=== PATIENT | male | born 1980 | race Caucasian/White ===

== ENCOUNTER 2016-12-29 09:26 | Emergency (ER) | payer SELFPAY ==
--- NOTE | 2016-12-29 10:25 | DIAGNOSTIC IMAGING REPORT ---
PROCEDURE: XR CHEST 1 VIEW INDICATION: CHEST PAIN TECHNIQUE: Portable AP view 09:48 a.m. COMPARISON: Chest 01/25/2015 FINDINGS: Lungs are clear. Heart and mediastinum are normal. Thorax is normal. IMPRESSION: 1. Negative chest.
--- NOTE | 2016-12-29 11:21 | ED NURSING NOTES ---
Clinical Report - Nurses [facility] [address] [place] [address] 12/29/2016 9:27 Patient: STEWART HARRIS TRIAGE Triage time 09:Dec 29 2016. Acuity: LEVEL 3. Chief Complaint: CHEST PAIN. 09:28 12/29/16. 09:12/29/16. Alert. SEPSIS SCREEN: Sepsis Screen. Negative (no infection suspected/documented). --09:32 Brock Juarez R.N. 09:27 12/29/16. BP: 155/103. HR: 74. RR: 16. O2 saturation: 99% on room air. Temp: 97.9 F (oral). Pain level now: 11/22. --09:32 Brock Juarez R.N. Weight: 124.7 kg stated. Height/Length: 70 inches Per Patient. BMI: 39.4. --09:27 Brock Juarez R.N. Medications HCTZ unsure of dose, daily. Lisinopril Oral 2.5 mg, daily. --09:33 Brock Juarez R.N. Atenolol Oral, , unsure of dose. --09:33 Brock Juarez R.N. Medication/allergy information source: the patient. --09:32 Brock Juarez R.N. Allergies No Known Drug Allergy. --09:33 Brock Juarez R.N. History Arrived by private vehicle. Historian: patient. Unaccompanied. Primary physician (ARNEL). 09:28 12/29/16. This started just prior to arrival. ( 1 hr ago, started at work, left chest with no radiation). The patient has had difficulty breathing and nausea. Reports experiencing sweating episodes. 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 PAST MEDICAL HX: Immunizations: up-to-date. SOCIAL HX: Former smoker (3 weeks ago). No alcohol use or drug use. No infectious disease exposure. ABUSE ASSESSMENT: No report of abuse. FALL RISK ASSESSMENT: Fall risk assessment completed. No fall risk identified. NUTRITIONAL RISK ASSESSMENT: The nutritional risk assessment revealed no deficiencies. FUNCTIONAL ASSESSMENT: Functional assessment: no impairments noted. LEARNING NEEDS ASSESSMENT: The learning needs assessment revealed no barriers. SKIN INTEGRITY ASSESSMENT: Skin integrity risk assessment completed. No skin integrity risk identified. --09:32 Brock Juarez R.N. PROBLEMS: Chest Wall Pain. Sprain. Chronic Headache. Gastroesophageal Reflux. Hypertension. --09:33 Brock Juarez R.N. ADDITIONAL SURGERIES: Ankle. --09:34 Brock Juarez R.N. Assessment 09:12/29/16. --09:32 Brock Juarez R.N. Interventions 09:12/29/16. 09:12/29/16. ID and allergy band on patient. To treatment room. --09:32 Brock Juarez R.N. PHYSICAL ASSESSMENT 09:12/29/16. Ambulatory to room. GENERAL / NEURO / PSYCH: Alert. Oriented X 4. Appears in pain. RESPIRATORY: Respirations not labored. CVS: Normal sinus rhythm noted. Capillary refill less than 2 seconds. EXTREMITIES: No lower extremity edema. SKIN: Skin is warm and dry. --09:34 Brock Juarez R.N. NURSING PROGRESS NOTES 09:12/29/2016 Site #1 started via IV in the right antecubital space with an 20g angiocath; one attempt. Blood drawn: rainbow set. Labeled in the presence of the patient. Saline lock flushed with 10 mL saline. --09:31 Brock Juarez R.N. 09:12/29/2016 Aspirin PO 325 mg given. Allergies verified and confirmed 5 rights. --09:32 Brock Juarez R.N. 09:12/29/16. The plan of care for this patient has been created. Oxygen administered. erecting engineer, pulse oximeter and NIBP monitor placed on patient; monitor alarms on. Patient gowned. Head of bed elevated. Reassurance given. Two patient identifiers checked. Call light placed in reach. Side rails up x 2. Bed placed in lowest position. Brakes of bed on. --09:30 Brock Juarez R.N. 09:30 12/29/16. Patient ready for evaluation- chart flagged and notification provided. --09:30 Brock Juarez R.N. 09:12/29/16. EKG time: (930). EKG was ordered, performed by a nurse and shown to the ED physician. --09:30 Brock Juarez R.N. 09:30 12/29/16. Patient ready for evaluation- chart flagged and notification provided. --09:30 Brock Juarez R.N. 09:30 12/29/16. Cardiac rhythm: normal sinus rhythm. --09:30 Brock Juarez R.N. 09:34 12/29/16. erecting engineer, pulse oximeter and NIBP monitor placed on patient; monitor alarms on. --09:34 Brock Juarez R.N. 10:12/29/16. Cardiac rhythm: normal sinus rhythm. --10:01 Brock Juarez R.N. 10:12/29/16. BP: 141/86. HR: 67. RR: 14. O2 saturation: 99% on nasal cannula at 2 liters/minute. --10:01 Brock Juarez R.N. 10:12/29/2016 Toradol IVP 30 mg given over 2 minute(s) via site #1. Allergies verified and confirmed 5 rights. IV patency established. IV site checked: no pain, redness, or swelling. IV flushed thoroughly pre- and post-medication administration. IVP given by RN. --10:05 Brock Juarez R.N. 10:12/29/16. Patient and family informed about reason for wait and about plan of care. --10:21 Brock Juarez R.N. 10:12/29/16. Cardiac rhythm: normal sinus rhythm. Reassessment after medication administered. Overall patient status is improved- he states feels better. ( 3/10 pain). --10:21 Brock Juarez R.N. 11:12/29/16. --11:06 Brock Juarez R.N. 11:12/29/16. BP: 116/76. HR: 68. RR: 16. O2 saturation: 99% on nasal cannula at 2 liters/minute. --11:06 Brock Juarez R.N. 11:06 12/29/16. Cardiac rhythm: normal sinus rhythm. --11:06 Brock Juarez R.N. 11:12/29/16. Patient and family informed about reason for wait and about plan of care. --11:07 Brock Juarez R.N. DISPOSITION / DISCHARGE 11:24 12/29/2016 Site #1 removed upon discharge. Catheter intact. Bandage applied. --11:24 Brock Juarez R.N. 11:25 12/29/16. Condition at departure: improved. The goals identified in the patient's plan of care were met. No learning barriers present. Discharge instructions provided and reviewed with the patient. Reviewed warnings. Reviewed medication(s). Treatments reviewed. Patient verbalized understanding. Written instructions provided in Swazi. The patient was discharged by the physician. He was discharged home and accompanied by family. He left the Emergency Department ambulatory and via private vehicle. Family member driving. FALL RISK ASSESSMENT: Fall risk assessment completed. No fall risk identified. --11:25 Brock Juarez R.N. 11:24 12/29/16. BP: 116/83. HR: 72. RR: 16. O2 saturation: 99% on room air. Temp: 97.9 F (oral). --11:25 Brock Juarez R.N. 11:34 12/29/16. Departure time: 11:33 Dec 29 2016. --11:34 Brock Juarez R.N. Locked/Released at 12/29/2016 11:44 by Brock Juarez R.N.
--- NOTE | 2016-12-29 11:21 | ED CLINICAL REPORT ---
Clinical Report - Physicians/Mid Levels [facility] [address] [place] [address] 12/29/2016 9:27 Patient: STEWART HARRIS Time Seen: 09:48 Dec 29 2016. Arrived- By private vehicle. Historian- patient. CPT: ER phys charges level 4 plus (#[id number]). EKG interpretation (#[id number]). HISTORY OF PRESENT ILLNESS Chief Complaint: CHEST PAIN. This started just prior to arrival This started just prior to arrival. ( 1 hr ago, started at work, left chest with no radiation). The patient has had difficulty breathing and nausea. Reports experiencing sweating episodes. and is still present. Onset during light activity. It is described as "pain" and diffuse and it is described as located in the left chest area. At its maximum, severity described as moderate. When seen in the E.D., severity described as mild. Modifying factors. Not worsened by anything. Not relieved by anything. No nausea or vomiting. He has had difficulty breathing and has experienced diaphoresis. 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 Recent medical care: Not recently seen/assessed. REVIEW OF SYSTEMS No fever, chills, cough, pedal edema or calf pain. No fainting episodes, sore throat, abdominal pain, black stools or difficulty with urination. No skin rash. All systems otherwise negative, except as recorded above. PAST HISTORY Chest Wall Pain. Sprain. Chronic Headache. Gastroesophageal Reflux. Hypertension. ADDITIONAL SURGERIES: Ankle. Medications: Atenolol Oral, , unsure of dose. HCTZ unsure of dose, daily. Lisinopril Oral 2.5 mg, daily. Allergies: No Known Drug Allergy. SOCIAL HISTORY Former smoker. No alcohol use or drug use. ADDITIONAL NOTES The nursing notes have been reviewed. PHYSICAL EXAM Vital Signs: 12/29/2016 09:27 BP: 155/103. HR: 74. RR: 16. O2 saturation: 99%. Temp: 97.9 F. Pain level now: 6/10. Appearance: Alert. Anxious. Appears to be in pain. Patient in mild distress. Eyes: Eyes normal inspection. ENT: Pharynx normal. Neck: Normal inspection. Neck supple. CVS: Normal heart rate and rhythm. Heart sounds normal. Pulses normal. No cardiac murmur. Respiratory: No respiratory distress. Chest pain reproducible with palpation of the costal cartilage and anterior chest wall, with movement of the trunk and left arm and with deep breathing. Breath sounds normal. Abdomen: Soft and nontender. Bowel sounds normal. Back: Normal external inspection. No CVA tenderness. Skin: Skin warm. Normal skin color. No rash. Extremities: Extremities exhibit normal ROM. No calf tenderness. No lower extremity edema. Neuro: Oriented X 3. No motor deficit. No sensory deficit. Reflexes normal. LABS, X-RAYS, AND EKG EKG: No acute ischemia. Normal sinus rhythm. Normal P waves. Normal KATHRINE. Normal QRS complex. Normal axis. Normal ST and T waves. Prior EKG unavailable. The study has been interpreted contemporaneously. The study has been independently viewed by me. The EKG appears to be a good tracing. Chest X-ray: Normal Chest X-Ray. Laboratory Tests: CBC w Diff: (SHERIDAN: 12/29/2016 09:30) ( MsgRcvd 12/29/2016 09:41) Final results Test Result Flag Units (Reference) WHITE BLOOD COUNT 9.1 K/uL (4.5-11.5) RED BLOOD COUNT 5.97 H M/uL (4.50-5.90) HEMOGLOBIN 16.6 gm/dL (13.5-17.5) HEMATOCRIT 48.8 % (41.0-53.0) MEAN CELL VOLUME 82 fL (80-100) MEAN CORPUSCULAR HGB 28 pg (26-34) MEAN CORPUSCULAR HGB CONC 34 g/dL (31-37) RED CELL DISTRIBUTION WIDTH 13.6 % (11.6-14.8) PLATELET COUNT 273 K/uL (150-400) NEUTROPHIL % 59.2 % (50-75) LYMPH % 32.3 % (25-40) MONO % 6.1 % (3-14) EOSINOPHIL % 2.1 % (0-4) BASOPHIL % 0.3 % (0-2) [id number]: (SHERIDAN: 12/29/2016 09:30) ( MsgRcvd 12/29/2016 10:14) Final results Test Result Flag Units (Reference) D-DIMER QUANTITATIVE 0.44 ug/mLFEU (0.27-0.52) The primary value of this quantitative assay relates toits negative predictive value (i.e. exclusion) of pulmonaryembolism/deep vein thrombosis/DIC.Elevated levels of d-dimer may also occur with:, age, cancer, inflammation, liver disease,post-op, infection, hematoma, coronary disease, peripheralarteriopathy, bleeding disorders and thrombolytic treatment.Results should be correlated with other clinical andradiological data.Testing Methodology: Latex Immunoassay [id number]: (SHERIDAN: 12/29/2016 09:30) ( CtgRcvd 12/29/2016 10:14) Final results Test Result Flag Units (Reference) C-REACTIVE PROTEIN 1.4 H mg/dL (0.0-0.9) CHEM 13 PANEL: (SHERIDAN: 12/29/2016 09:30) ( [facility] 12/29/2016 10:05) Final results Test Result Flag Units (Reference) GLUCOSE 102 mg/dL (70-110) BUN 13 mg/dL (7-18) CREATININE 1.1 mg/dL (0.6-1.3) Estimated GFR >60 mL/min Estimated GFR- >60 mL/min Note: Persistent reduction over 3 months in eGFR<60 mL/min/1.73 m2 defines CKD. Patients with eGFR values>=60 mL/min/1.73 m2 may also have CKD if evidence ofpersistent proteinuria. Additional information may be foundat www.[email or web address].org. SODIUM 139 mmol/L (136-145) POTASSIUM 3.9 mmol/L (3.5-5.1) CHLORIDE 100 mmol/L (98-107) CARBON DIOXIDE 33 H mmol/L (21-32) CALCIUM 10.0 mg/dL (8.5-10.1) TOTAL PROTEIN 8.7 H g/dL (6.4-8.2) ALBUMIN 4.4 g/dL (3.3-5.0) BILIRUBIN, TOTAL 0.6 mg/dL (0.0-1.0) ALKALINE PHOSPHATASE 91 U/L (46-116) AST (SGOT) 29 U/L (15-37) ALT (SGPT) 50 U/L (12-78) CPK 222 U/L (24-260) MAGNESIUM 1.9 mg/dL (1.8-2.4) TROPONIN I <0.05 L ng/mL (0.00-1.5) TROPONIN REFERENCE RANGE:<0.1 NEGATIVE0.1-1.5 INDETERMINANT>1.5 POSITIVE . PROGRESS AND PROCEDURES Course of Care: Heplock ASA 325 mg po Toradol 30 mg IV Patient is stable. Patient/family counseled. Disposition: Discharged. Condition: stable. CLINICAL IMPRESSION Chest wall pain .12 lead EKG performed. INSTRUCTIONS Apply moist heat for 15-20 minutes two times a day for one weeks until better. No strenuous activity. Do not work today, for one day until better. Warnings: Further evaluation is necessary. GENERAL WARNINGS: Return or contact your physician immediately if your condition worsens or changes unexpectedly, if not improving as expected, or if other problems arise. Your Current Medications: CONTINUE TAKING THE FOLLOWING MEDICATIONS: Atenolol Oral : unsure of dose. HCTZ* : unsure of dose daily. Lisinopril Oral : 2.5 mg daily. Prescription Medications: Hydrocodone/APAP 5mg/325mg: take 1 to 2 orally every 6 hours as needed for pain. Dispense fifteen (15). No refills. Ibuprofen 600mg tablets: take 1 tablet orally every 8 hours as needed for pain. Dispense thirty (30). No refills. Soma 350 mg: Take 1 orally every 6 hours as needed for muscle spasm. Dispense twenty (20). No refills. Substitution is permissible. Follow-up: Follow up with your doctor in one week. Call for an appointment. Understanding of the discharge instructions verbalized by patient. (Electronically signed by Isidro Verdugo MD 12/30/2016 21:26)
--- NOTE | 2016-12-29 11:21 | ED CLINICAL REPORT ---
Clinical Report - Physicians/Mid Levels [facility] [address] [place] [address] 12/29/2016 9:27 Patient: STEWART HARRIS Time Seen: 09:48 Dec 29 2016. Arrived- By private vehicle. Historian- patient. CPT: ER phys charges level 4 plus (#[id number]). EKG interpretation (#[id number]). HISTORY OF PRESENT ILLNESS Chief Complaint: CHEST PAIN. This started just prior to arrival This started just prior to arrival. ( 1 hr ago, started at work, left chest with no radiation). The patient has had difficulty breathing and nausea. Reports experiencing sweating episodes. and is still present. Onset during light activity. It is described as "pain" and diffuse and it is described as located in the left chest area. At its maximum, severity described as moderate. When seen in the E.D., severity described as mild. Modifying factors. Not worsened by anything. Not relieved by anything. No nausea or vomiting. He has had difficulty breathing and has experienced diaphoresis. 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 Recent medical care: Not recently seen/assessed. REVIEW OF SYSTEMS No fever, chills, cough, pedal edema or calf pain. No fainting episodes, sore throat, abdominal pain, black stools or difficulty with urination. No skin rash. All systems otherwise negative, except as recorded above. PAST HISTORY Chest Wall Pain. Sprain. Chronic Headache. Gastroesophageal Reflux. Hypertension. ADDITIONAL SURGERIES: Ankle. Medications: Atenolol Oral, , unsure of dose. HCTZ unsure of dose, daily. Lisinopril Oral 2.5 mg, daily. Allergies: No Known Drug Allergy. SOCIAL HISTORY Former smoker. No alcohol use or drug use. ADDITIONAL NOTES The nursing notes have been reviewed. PHYSICAL EXAM Vital Signs: 12/29/2016 09:27 BP: 155/103. HR: 74. RR: 16. O2 saturation: 99%. Temp: 97.9 F. Pain level now: 6/10. Appearance: Alert. Anxious. Appears to be in pain. Patient in mild distress. Eyes: Eyes normal inspection. ENT: Pharynx normal. Neck: Normal inspection. Neck supple. CVS: Normal heart rate and rhythm. Heart sounds normal. Pulses normal. No cardiac murmur. Respiratory: No respiratory distress. Chest pain reproducible with palpation of the costal cartilage and anterior chest wall, with movement of the trunk and left arm and with deep breathing. Breath sounds normal. Abdomen: Soft and nontender. Bowel sounds normal. Back: Normal external inspection. No CVA tenderness. Skin: Skin warm. Normal skin color. No rash. Extremities: Extremities exhibit normal ROM. No calf tenderness. No lower extremity edema. Neuro: Oriented X 3. No motor deficit. No sensory deficit. Reflexes normal. LABS, X-RAYS, AND EKG EKG: No acute ischemia. Normal sinus rhythm. Normal P waves. Normal KATHRINE. Normal QRS complex. Normal axis. Normal ST and T waves. Prior EKG unavailable. The study has been interpreted contemporaneously. The study has been independently viewed by me. The EKG appears to be a good tracing. Chest X-ray: Normal Chest X-Ray. Laboratory Tests: CBC w Diff: (SHERIDAN: 12/29/2016 09:30) ( MsgRcvd 12/29/2016 09:41) Final results Test Result Flag Units (Reference) WHITE BLOOD COUNT 9.1 K/uL (4.5-11.5) RED BLOOD COUNT 5.97 H M/uL (4.50-5.90) HEMOGLOBIN 16.6 gm/dL (13.5-17.5) HEMATOCRIT 48.8 % (41.0-53.0) MEAN CELL VOLUME 82 fL (80-100) MEAN CORPUSCULAR HGB 28 pg (26-34) MEAN CORPUSCULAR HGB CONC 34 g/dL (31-37) RED CELL DISTRIBUTION WIDTH 13.6 % (11.6-14.8) PLATELET COUNT 273 K/uL (150-400) NEUTROPHIL % 59.2 % (50-75) LYMPH % 32.3 % (25-40) MONO % 6.1 % (3-14) EOSINOPHIL % 2.1 % (0-4) BASOPHIL % 0.3 % (0-2) [id number]: (SHERIDAN: 12/29/2016 09:30) ( MsgRcvd 12/29/2016 10:14) Final results Test Result Flag Units (Reference) D-DIMER QUANTITATIVE 0.44 ug/mLFEU (0.27-0.52) The primary value of this quantitative assay relates toits negative predictive value (i.e. exclusion) of pulmonaryembolism/deep vein thrombosis/DIC.Elevated levels of d-dimer may also occur with:, age, cancer, inflammation, liver disease,post-op, infection, hematoma, coronary disease, peripheralarteriopathy, bleeding disorders and thrombolytic treatment.Results should be correlated with other clinical andradiological data.Testing Methodology: Latex Immunoassay [id number]: (SHERIDAN: 12/29/2016 09:30) ( MogRcvd 12/29/2016 10:14) Final results Test Result Flag Units (Reference) C-REACTIVE PROTEIN 1.4 H mg/dL (0.0-0.9) CHEM 13 PANEL: (SHERIDAN: 12/29/2016 09:30) ( [facility]) Final results Test Result Flag Units (Reference) GLUCOSE 102 mg/dL (70-110) BUN 13 mg/dL (7-18) CREATININE 1.1 mg/dL (0.6-1.3) Estimated GFR >60 mL/min Estimated GFR- >60 mL/min Note: Persistent reduction over 3 months in eGFR<60 mL/min/1.73 m2 defines CKD. Patients with eGFR values>=60 mL/min/1.73 m2 may also have CKD if evidence ofpersistent proteinuria. Additional information may be foundat www.[email or web address].org. SODIUM 139 mmol/L (136-145) POTASSIUM 3.9 mmol/L (3.5-5.1) CHLORIDE 100 mmol/L (98-107) CARBON DIOXIDE 33 H mmol/L (21-32) CALCIUM 10.0 mg/dL (8.5-10.1) TOTAL PROTEIN 8.7 H g/dL (6.4-8.2) ALBUMIN 4.4 g/dL (3.3-5.0) BILIRUBIN, TOTAL 0.6 mg/dL (0.0-1.0) ALKALINE PHOSPHATASE 91 U/L (46-116) AST (SGOT) 29 U/L (15-37) ALT (SGPT) 50 U/L (12-78) CPK 222 U/L (24-260) MAGNESIUM 1.9 mg/dL (1.8-2.4) TROPONIN I <0.05 L ng/mL (0.00-1.5) TROPONIN REFERENCE RANGE:<0.1 NEGATIVE0.1-1.5 INDETERMINANT>1.5 POSITIVE . PROGRESS AND PROCEDURES Course of Care: Heplock ASA 325 mg po Toradol 30 mg IV Patient is stable. Patient/family counseled. Disposition: Discharged. Condition: stable. CLINICAL IMPRESSION Chest wall pain .12 lead EKG performed. INSTRUCTIONS Apply moist heat for 15-20 minutes two times a day for one weeks until better. No strenuous activity. Do not work today, for one day until better. Warnings: Further evaluation is necessary. GENERAL WARNINGS: Return or contact your physician immediately if your condition worsens or changes unexpectedly, if not improving as expected, or if other problems arise. Your Current Medications: CONTINUE TAKING THE FOLLOWING MEDICATIONS: Atenolol Oral : unsure of dose. HCTZ* : unsure of dose daily. Lisinopril Oral : 2.5 mg daily. Prescription Medications: Hydrocodone/APAP 5mg/325mg: take 1 to 2 orally every 6 hours as needed for pain. Dispense fifteen (15). No refills. Ibuprofen 600mg tablets: take 1 tablet orally every 8 hours as needed for pain. Dispense thirty (30). No refills. Soma 350 mg: Take 1 orally every 6 hours as needed for muscle spasm. Dispense twenty (20). No refills. Substitution is permissible. Follow-up: Follow up with your doctor in one week. Call for an appointment. Understanding of the discharge instructions verbalized by patient. (Electronically signed by Isidro Verdugo MD 12/30/2016 21:26)
--- NOTE | 2016-12-29 11:21 | ED ORDER SUMMARY ---
..... Patient: STEWART HARRIS OrderSheet [facility] VisitID: [id number] [address] [place] [address] 36y, M Registration Date/Time: 12/29/2016 ORDER SHEET Weight: 124.7 kg (stated) Allergies: No Known Drug Allergy GENERAL ORDERS: Chest 1V Urgent (:12/29/2016 JBoardley R.N. per protocol) (Ack 9:35 Coleman) (9:45 JBoardley R.N.) Rn Field Case Manager (Continuous) (12/29/2016 JBoardley R.N. per protocol) (9:31 JBoardley R.N.) Cardiac Panel Stat (12/29/2016 JBoardley R.N. per protocol) (Ack 9:35 Coleman) (9:36 JBoardley R.N.) Oxygen (2 L/min) (NC) (:12/29/2016 JBoardley R.N. per protocol) (9:31 JBoardley R.N.) Pulse oximeter (12/29/2016 JBoardley R.N. per protocol) (9:31 JBoardley R.N.) EKG - ER Stat (:12/29/2016 JBoardley R.N. per protocol) (9:35 JBoardley R.N.) CRP Urgent (10:12/29/2016 Kayce DREW) (Ack 10:05 Coleman) (10:05 JBoardley R.N.) D-Dimer Urgent (10:12/29/2016 Kayce DREW) (Ack 10:05 Coleman) (10:05 JBoardley R.N.) MEDICATION ORDERS: Aspirin PO 325 mg (Do not crush or chew, NOW) (:12/29/2016 JBoardley R.N. per protocol) (9:32 JBoardley R.N.) IV FLUIDS: IV Saline Lock (:12/29/2016 JBoardley R.N. per protocol) (9:31 JBoardley R.N.) Toradol IV 30 mg (NOW) (09:59 12/29/2016 Kayce DREW) (Ack 10:01 Kaylin Angeles) (10:05 Kaylin Angeles) ORDER SHEET NOTES: [Electronically signed by Brock Juarez R.N. (11:44 12/29/2016)] [Electronically signed by Isidro Verdugo MD (21:26 12/30/2016)] [Electronically locked/signed by Brock Juarez R.N. (11:44 12/29/2016)]
--- NOTE | 2016-12-29 11:21 | ED NURSING NOTES ---
Clinical Report - Nurses [facility] [address] [place] [address] 12/29/2016 9:27 Patient: STEWART HARRIS TRIAGE Triage time 09:Dec 29 2016. Acuity: LEVEL 3. Chief Complaint: CHEST PAIN. 09:28 12/29/16. 09:12/29/16. Alert. SEPSIS SCREEN: Sepsis Screen. Negative (no infection suspected/documented). --09:32 Brock Juarez R.N. 09:27 12/29/16. BP: 155/103. HR: 74. RR: 16. O2 saturation: 99% on room air. Temp: 97.9 F (oral). Pain level now: 11/22. --09:32 Brock Juarez R.N. Weight: 124.7 kg stated. Height/Length: 70 inches Per Patient. BMI: 39.4. --09:27 Brock Juarez R.N. Medications HCTZ unsure of dose, daily. Lisinopril Oral 2.5 mg, daily. --09:33 Brock Juarez R.N. Atenolol Oral, , unsure of dose. --09:33 Brock Juarez R.N. Medication/allergy information source: the patient. --09:32 Brock Juarez R.N. Allergies No Known Drug Allergy. --09:33 Brock Juarez R.N. History Arrived by private vehicle. Historian: patient. Unaccompanied. Primary physician (ARNEL). 09:28 12/29/16. This started just prior to arrival. ( 1 hr ago, started at work, left chest with no radiation). The patient has had difficulty breathing and nausea. Reports experiencing sweating episodes. 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 PAST MEDICAL HX: Immunizations: up-to-date. SOCIAL HX: Former smoker (3 weeks ago). No alcohol use or drug use. No infectious disease exposure. ABUSE ASSESSMENT: No report of abuse. FALL RISK ASSESSMENT: Fall risk assessment completed. No fall risk identified. NUTRITIONAL RISK ASSESSMENT: The nutritional risk assessment revealed no deficiencies. FUNCTIONAL ASSESSMENT: Functional assessment: no impairments noted. LEARNING NEEDS ASSESSMENT: The learning needs assessment revealed no barriers. SKIN INTEGRITY ASSESSMENT: Skin integrity risk assessment completed. No skin integrity risk identified. --09:32 Brock Juarez R.N. PROBLEMS: Chest Wall Pain. Sprain. Chronic Headache. Gastroesophageal Reflux. Hypertension. --09:33 Brock Juarez R.N. ADDITIONAL SURGERIES: Ankle. --09:34 Brock Juarez R.N. Assessment 09:12/29/16. --09:32 Brock Juarez R.N. Interventions 09:12/29/16. 09:12/29/16. ID and allergy band on patient. To treatment room. --09:32 Brock Juarez R.N. PHYSICAL ASSESSMENT 09:12/29/16. Ambulatory to room. GENERAL / NEURO / PSYCH: Alert. Oriented X 4. Appears in pain. RESPIRATORY: Respirations not labored. CVS: Normal sinus rhythm noted. Capillary refill less than 2 seconds. EXTREMITIES: No lower extremity edema. SKIN: Skin is warm and dry. --09:34 Brock Juarez R.N. NURSING PROGRESS NOTES 09:12/29/2016 Site #1 started via IV in the right antecubital space with an 20g angiocath; one attempt. Blood drawn: rainbow set. Labeled in the presence of the patient. Saline lock flushed with 10 mL saline. --09:31 Brock Juarez R.N. 09:12/29/2016 Aspirin PO 325 mg given. Allergies verified and confirmed 5 rights. --09:32 Brock Juarez R.N. 09:12/29/16. The plan of care for this patient has been created. Oxygen administered. cantilever crane operator, pulse oximeter and NIBP monitor placed on patient; monitor alarms on. Patient gowned. Head of bed elevated. Reassurance given. Two patient identifiers checked. Call light placed in reach. Side rails up x 2. Bed placed in lowest position. Brakes of bed on. --09:30 Brock Juarez R.N. 09:30 12/29/16. Patient ready for evaluation- chart flagged and notification provided. --09:30 Brock Juarez R.N. 09:12/29/16. EKG time: (930). EKG was ordered, performed by a nurse and shown to the ED physician. --09:30 Brock Juarez R.N. 09:30 12/29/16. Patient ready for evaluation- chart flagged and notification provided. --09:30 Brock Juarez R.N. 09:30 12/29/16. Cardiac rhythm: normal sinus rhythm. --09:30 Brock Juarez R.N. 09:34 12/29/16. cantilever crane operator, pulse oximeter and NIBP monitor placed on patient; monitor alarms on. --09:34 Brock Juarez R.N. 10:12/29/16. Cardiac rhythm: normal sinus rhythm. --10:01 Brock Juarez R.N. 10:12/29/16. BP: 141/86. HR: 67. RR: 14. O2 saturation: 99% on nasal cannula at 2 liters/minute. --10:01 Brock Juarez R.N. 10:12/29/2016 Toradol IVP 30 mg given over 2 minute(s) via site #1. Allergies verified and confirmed 5 rights. IV patency established. IV site checked: no pain, redness, or swelling. IV flushed thoroughly pre- and post-medication administration. IVP given by RN. --10:05 Brock Juarez R.N. 10:12/29/16. Patient and family informed about reason for wait and about plan of care. --10:21 Brock Juarez R.N. 10:12/29/16. Cardiac rhythm: normal sinus rhythm. Reassessment after medication administered. Overall patient status is improved- he states feels better. ( 3/10 pain). --10:21 Brock Juarez R.N. 11:12/29/16. --11:06 Brock Juarez R.N. 11:12/29/16. BP: 116/76. HR: 68. RR: 16. O2 saturation: 99% on nasal cannula at 2 liters/minute. --11:06 Brock Juarez R.N. 11:06 12/29/16. Cardiac rhythm: normal sinus rhythm. --11:06 Brock Juarez R.N. 11:12/29/16. Patient and family informed about reason for wait and about plan of care. --11:07 Brock Juarez R.N. DISPOSITION / DISCHARGE 11:24 12/29/2016 Site #1 removed upon discharge. Catheter intact. Bandage applied. --11:24 Brock Juarez R.N. 11:25 12/29/16. Condition at departure: improved. The goals identified in the patient's plan of care were met. No learning barriers present. Discharge instructions provided and reviewed with the patient. Reviewed warnings. Reviewed medication(s). Treatments reviewed. Patient verbalized understanding. Written instructions provided in [place]. The patient was discharged by the physician. He was discharged home and accompanied by family. He left the Emergency Department ambulatory and via private vehicle. Family member driving. FALL RISK ASSESSMENT: Fall risk assessment completed. No fall risk identified. --11:25 Brock Juarez R.N. 11:24 12/29/16. BP: 116/83. HR: 72. RR: 16. O2 saturation: 99% on room air. Temp: 97.9 F (oral). --11:25 Brock Juarez R.N. 11:34 12/29/16. Departure time: 11:33 Dec 29 2016. --11:34 Brock Juarez R.N. Locked/Released at 12/29/2016 11:44 by Brock Juarez R.N.
--- NOTE | 2016-12-29 11:21 | ED ORDER SUMMARY ---
..... Patient: STEWART HARRIS OrderSheet [facility] VisitID: [id number] [address] [place] [address] 36y, M Registration Date/Time: 12/29/2016 ORDER SHEET Weight: 124.7 kg (stated) Allergies: No Known Drug Allergy GENERAL ORDERS: Chest 1V Urgent (:12/29/2016 JBoardley R.N. per protocol) (Ack 9:35 Coleman) (9:45 JBoardley R.N.) Bending Roll Operator (Continuous) (12/29/2016 JBoardley R.N. per protocol) (9:31 JBoardley R.N.) Cardiac Panel Stat (12/29/2016 JBoardley R.N. per protocol) (Ack 9:35 Coleman) (9:36 JBoardley R.N.) Oxygen (2 L/min) (NC) (:12/29/2016 JBoardley R.N. per protocol) (9:31 JBoardley R.N.) Pulse oximeter (12/29/2016 JBoardley R.N. per protocol) (9:31 JBoardley R.N.) EKG - ER Stat (:12/29/2016 JBoardley R.N. per protocol) (9:35 JBoardley R.N.) CRP Urgent (10:12/29/2016 Kayce DREW) (Ack 10:05 Coleman) (10:05 JBoardley R.N.) D-Dimer Urgent (10:12/29/2016 Kayce DREW) (Ack 10:05 Coleman) (10:05 JBoardley R.N.) MEDICATION ORDERS: Aspirin PO 325 mg (Do not crush or chew, NOW) (:12/29/2016 JBoardley R.N. per protocol) (9:32 JBoardley R.N.) IV FLUIDS: IV Saline Lock (:12/29/2016 JBoardley R.N. per protocol) (9:31 JBoardley R.N.) Toradol IV 30 mg (NOW) (09:59 12/29/2016 Kayec DREW) (Ack 10:01 Kaylin Angeles) (10:05 Kaylin Angeles) ORDER SHEET NOTES: [Electronically signed by Brock Juarez R.N. (11:44 12/29/2016)] [Electronically signed by Isidro Verdugo MD (21:26 12/30/2016)] [Electronically locked/signed by Brock Juarez R.N. (11:44 12/29/2016)]
--- NOTE | 2016-12-30 21:26 | ED DISCHARGE INSTRUCTIONS ---
Patient: STEWART HARRIS General Instructions [facility] VisitID: [id number] [address] [place] [address] 36y, M Registration Date/Time: 12/29/2016 Chest wall pain .12 lead EKG performed. INSTRUCTIONS Apply moist heat for 15-20 minutes two times a day for one weeks until better. No strenuous activity. Do not work today, for one day until better. Warnings: Further evaluation is necessary. GENERAL WARNINGS: Return or contact your physician immediately if your condition worsens or changes unexpectedly, if not improving as expected, or if other problems arise. Your Current Medications: CONTINUE TAKING THE FOLLOWING MEDICATIONS: Atenolol Oral : unsure of dose. HCTZ* : unsure of dose daily. Lisinopril Oral : 2.5 mg daily. Prescription Medications: Hydrocodone/APAP 5mg/325mg: take 1 to 2 orally every 6 hours as needed for pain. Dispense fifteen (15). No refills. Ibuprofen 600mg tablets: take 1 tablet orally every 8 hours as needed for pain. Dispense thirty (30). No refills. Soma 350 mg: Take 1 orally every 6 hours as needed for muscle spasm. Dispense twenty (20). No refills. Substitution is permissible. Follow-up: Follow up with your doctor in one week. Call for an appointment. Understanding of the discharge instructions verbalized by patient. ADDITIONAL INFORMATION Chest Wall Pain: Costochondritis The chest pain that you have had today is caused by Costochondritis. This condition is due to an inflammation of the cartilage joining the ribs to the breastbone. It is not caused by heart or lung problems. Although the exact cause for costochondritis is not known, it often occurs during times of emotional stress. It can be painful, but it is not dangerous. It usually disappears within one to two weeks, but may recur. Rarely, a more serious condition may cause symptoms similar to costochondritis; therefore, watch for the warning signs listed below. Home Care: If you feel that emotional stress is a cause of your condition, try to identify sources of that stress. It may not be obvious! Learn ways to deal with the stress in your life such as regular exercise, muscle relaxation, meditation, or simply taking time out for yourself. For more information about this, consult your doctor or go to a local bookstore and review books and tapes available on the subject of stress reduction. You may use acetaminophen (Tylenol) or ibuprofen (Motrin, Advil) to control pain, unless another pain medicine was prescribed. [ NOTE: If you have liver disease or ever had a stomach ulcer, talk with your doctor before using these medicines.] The use of heat (hot wet compress or heating pad) with or without local analgesic creams (Deep Heat Rub, Tanner Campo) will be helpful to reduce pain. Follow Up with your doctor as directed or sooner if you do not start to improve within the next two days. Get Prompt Medical Attention if any of the following occur: A change in the type of pain: if it feels different, becomes more severe, lasts longer, or spreads into your shoulder, arm, neck, jaw or back Shortness of breath or increased pain with breathing Weakness, dizziness, or fainting Cough with dark colored sputum (phlegm) or blood Abdominal pain Dark red or black stools Fever of 100.4F (38C) or higher, or as directed by your healthcare provider Chest Strain A strain of the chest is due to stretching and tearing of the muscle fibers between the ribs. This may occur as a result of severe coughing, strenuous lifting or twisting injuries of the upper back. This usually causes increased pain with movement or deep breathing. This may take a few days to a few weeks to heal. Home Care: Rest. Avoid heavy lifting or strenuous exertion. Avoid any activity that causes pain. If you have a severe cough, use a cough syrup such as Robitussin DM (containing dextromethorphan) unless another cough medicine was prescribed. You may use acetaminophen (Tylenol) or ibuprofen (Motrin, Advil) to control pain, unless another medicine was prescribed. [ NOTE: If you have chronic liver or kidney disease or ever had a stomach ulcer or GI bleeding, talk with your doctor before using these medicines.] Follow Up with your doctor as directed. Get Prompt Medical Attention if any of the following occur: A change in the type of pain: if it feels different, becomes more severe, lasts longer, or begins to spread into your shoulder, arm, neck, jaw or back Shortness of breath or increased pain with breathing Cough with dark colored sputum (phlegm) or blood Weakness, dizziness, or fainting Fever of 100.4F (38C) or higher, or as directed by your healthcare provider You have been given the following additional information: Chest Wall Pain, Costochondritis Chest Wall Strain No strenuous activity. Do not work today, for one day until better. (Electronically signed by Isidro Verdugo MD 12/30/2016 21:26)
--- NOTE | 2016-12-30 21:26 | ED MAR SUMMARY ---
..... Medication Administration Record [facility] [address] [place] [address] Patient: STEWART HARRIS Visit ID: [id number] 36y, M Weight: 124.7 kg Height/Length: 70 in BMI: 39.4 ALLERGIES: No Known Drug Allergy Given 09:26 12/29/2016 Brock Juarez R.N. Medication Administered: ASPIRIN [PO], Dose: 325 mg PO. Medication Ordered: Aspirin PO 325 mg (Do not crush or chew, NOW). Given 10:05 12/29/2016 Brock Juarez R.N. Medication Administered: TORADOL [IVP], Dose: 30 mg IVP over 2 minute(s), Site: #1 right AC. Medication Ordered: Toradol IV 30 mg (NOW).
--- NOTE | 2016-12-30 21:26 | ED MED RECONCILIATION SUMMARY ---
Patient: STEWART HARRIS Medication Reconciliation Report [facility] VisitID: [id number] [address] [place] [address] 36y, M Registration Date/Time: 12/29/2016 Weight: 124.7 kg Height/Length: 70 in. BMI: 39.4 ALLERGIES: No Known Drug Allergy The patient's Home Medications are listed below: CONTINUE TAKING THE FOLLOWING MEDICATIONS: Atenolol Oral, unsure of dose HCTZ unsure of dose, daily Lisinopril Oral 2.5 mg, daily The source(s) of the original Home Medication information: patient The following Medications were given to the patient in the Emergency Department: Aspirin [PO] PO 325 mg, administered: 12/29/2016 9:26:00 AM Toradol [IVP] IVP 30 mg, administered: 12/29/2016 10:05:00 AM The following Medications were prescribed to the patient: Hydrocodone/APAP 5mg/325mg: take 1 to 2 orally every 6 hours as needed for pain. Dispense fifteen (15). No refills. -- Isidro Verdugo MD Ibuprofen 600mg tablets: take 1 tablet orally every 8 hours as needed for pain. Dispense thirty (30). No refills. -- Isidro Verdugo MD Soma 350 mg: Take 1 orally every 6 hours as needed for muscle spasm. Dispense twenty (20). No refills. Substitution is permissible. -- Isidro Verdugo MD
--- NOTE | 2016-12-30 21:26 | ED MED RECONCILIATION SUMMARY ---
Patient: STEWART HARRIS Medication Reconciliation Report [facility] VisitID: [id number] [address] [place] [address] 36y, M Registration Date/Time: 12/29/2016 Weight: 124.7 kg Height/Length: 70 in. BMI: 39.4 ALLERGIES: No Known Drug Allergy The patient's Home Medications are listed below: CONTINUE TAKING THE FOLLOWING MEDICATIONS: Atenolol Oral, unsure of dose HCTZ unsure of dose, daily Lisinopril Oral 2.5 mg, daily The source(s) of the original Home Medication information: patient The following Medications were given to the patient in the Emergency Department: Aspirin [PO] PO 325 mg, administered: 12/29/2016 9:26:00 AM Toradol [IVP] IVP 30 mg, administered: 12/29/2016 10:05:00 AM The following Medications were prescribed to the patient: Hydrocodone/APAP 5mg/325mg: take 1 to 2 orally every 6 hours as needed for pain. Dispense fifteen (15). No refills. -- Isidro Verdugo MD Ibuprofen 600mg tablets: take 1 tablet orally every 8 hours as needed for pain. Dispense thirty (30). No refills. -- Isidro Verdugo MD Soma 350 mg: Take 1 orally every 6 hours as needed for muscle spasm. Dispense twenty (20). No refills. Substitution is permissible. -- Isidro Verdugo MD
--- NOTE | 2016-12-30 21:26 | ED MAR SUMMARY ---
..... Medication Administration Record [facility] [address] [place] [address] Patient: STEWART HARRIS Visit ID: [id number] 36y, M Weight: 124.7 kg Height/Length: 70 in BMI: 39.4 ALLERGIES: No Known Drug Allergy Given 09:26 12/29/2016 Brock Juarez R.N. Medication Administered: ASPIRIN [PO], Dose: 325 mg PO. Medication Ordered: Aspirin PO 325 mg (Do not crush or chew, NOW). Given 10:05 12/29/2016 Brock Juarez R.N. Medication Administered: TORADOL [IVP], Dose: 30 mg IVP over 2 minute(s), Site: #1 right AC. Medication Ordered: Toradol IV 30 mg (NOW).
== END 2016-12-29 11:33 | disposition home or self-care (01) ==
LOC: ED SRH 09:26
DX: R07.89 Other chest pain (principal); I10 Essential (primary) hypertension; K21.9 Gastro-esophageal reflux disease without esophagitis; Z79.899 Other long term (current) drug therapy; Z87.891 Personal history of nicotine dependence
CPT/HCPCS: 90100; 90616; 91556; 91585; 92610; 92720; 95059